=== PATIENT | male | born 1995 | race Caucasian/White ===

== ENCOUNTER 2017-02-11 17:25 | Inpatient (IN) | payer OTHER ==
[~2017-02-11] VITALS: Ht 175.3 cm; Wt 84.9 kg
[2017-02-11 17:49] LABS: MEAN PLAT.VOLUME 11.5 uM^3 (9.0-12.4); PLATELET COUNT 511 K/uL (156-360)
[2017-02-11 17:53] LABS: HEMATOCRIT 44.4 % (38.0-50.0); MCH 28.2 PG (29.0-34.0); MCHC 33.3 G/DL (30.0-36.0); MCV 84.6 FL (86-99); RBC DIS.WIDTH-CV 12.7 % (11.8-14.6); RBC DIS.WIDTH-SD 38.1 % (39-53); RED BLOOD COUNT 5.25 M/uL (4.00-5.50); WHITE BLOOD COUNT 33.5 K/uL (4.1-10.2)
[2017-02-11 17:57] LABS: CHLORIDE 97 mEq/L (99-109); POTASSIUM 3.6 mEq/L (3.7-5.4); SODIUM 144 mEq/L (136-147)
[2017-02-11 17:58] LABS: INTER. NORMALIZED RATIO 1.2; PROTHROMBIN TIME 13.6 SEC (10.2-12.9)
[2017-02-11 18:00] LABS: GLUCOSE 232 mg/dL (70-99)
[2017-02-11 18:01] LABS: ANION GAP 37 MEQ/L (2-14)
[2017-02-11 18:02] LABS: TOTAL BILIRUBIN 0.2 mg/dL (0.0-1.0)
[2017-02-11 18:03] LABS: SERUM ETHYL ALCOHOL < 10 mg/dL
[2017-02-11 18:04] LABS: ALKALINE PHOSPHATASE 89 IU/L (3-129); GFR ESTIMATE (CALCULATED) 21 mL/min/
[2017-02-11 18:05] LABS: DIRECT BILIRUBIN 0.2 mg/dL (0.0-0.3)
[2017-02-11 18:06] LABS: UREA NITROGEN (BUN) 18 mg/dL (9-23)
[2017-02-11 18:07] LABS: SALICYLATE < 5.0 MG/DL (15-30)
[2017-02-11 18:08] LABS: CREATINE KINASE 183 IU/L (1-294); TOTAL CK 183 IU/L (1-294)
[2017-02-11 18:09] LABS: TROP-I INTERPRETATION NEGATIVE; TROPONIN-I 0.02 ng/mL (0.0-0.30)
[2017-02-11 18:13] LABS: CK-MB 5.2 ng/mL (0.0-4.9)
[2017-02-11 18:24] LABS: CARBON DIOXIDE (BICARBONATE) 14.2 MEQ/L (20-31)
[2017-02-11 18:31] LABS: CARBOXY HGB 1.5 % (0-5); COMMENTS - BLOOD GASES A+C+; METHEMOGLOBIN 1.1 % (0-1.5); PCO2 < 20 mm Hg (35-45); PO2 120 mm Hg (80-100); SITE RR; pH 7.35 (7.35-7.45)
[2017-02-11 18:59] LABS: POINT-OF-CARE METER ID UU13113747
[2017-02-11 19:33] LABS: POINT-OF-CARE METER ID UU13113747
[2017-02-11 20:20] LABS: POINT-OF-CARE METER ID UU13113747; POINT-OF-CARE USER ID 608261302
[2017-02-11 21:15] VITALS: BP 88/43
[2017-02-11 21:20] VITALS: BP 91/39
[2017-02-11 22:00] VITALS: BP 80/24
[2017-02-11 22:26] LABS: POINT-OF-CARE METER ID UU14162636; POINT-OF-CARE USER ID ENVSME70
[2017-02-11 22:49] LABS: METH RESISTANT S AUREUS PCR NEGATIVE (NEGATIVE)
[2017-02-11 22:50] LABS: PROBE CHECK PASS; SPECIMEN PROCESSING CONTROL PASS
[2017-02-11 23:00] VITALS: BP 102/51
[2017-02-11 23:00] LABS: BASOPHIL COUNT 0.1 K/uL (0-0.1); EOSINOPHIL (%) 0 % (0-5); HEMATOCRIT 35.2 % (38.0-50.0); IMMATURE GRANULOCYTE (%) 2.4 % (0.0-0.7); IMMATURE GRANULOCYTE COUNT 0.9 K/uL; INSTRUMENT ABS NEUTROPHIL CT 31.2 K/uL; LYMPHOCYTE COUNT 3.3 K/uL (1.0-2.8); MCHC 33.5 G/DL (30.0-36.0); MCV 83.6 FL (86-99); MEAN PLAT.VOLUME 11.8 uM^3 (9.0-12.4); MONOCYTE (%) 10.9 % (3-12); MONOCYTE COUNT 4.4 K/uL (0-0.8); NEUTROPHIL (%) 78.2 % (45-76); NEUTROPHIL COUNT 31.2 K/uL (1.8-6.4); PLATELET COUNT 378 K/uL (156-360); RBC DIS.WIDTH-CV 12.7 % (11.8-14.6); RBC DIS.WIDTH-SD 38.5 % (39-53); RED BLOOD COUNT 4.21 M/uL (4.00-5.50)
[2017-02-11 23:01] LABS: WHITE BLOOD COUNT 39.9 K/uL (4.1-10.2)
[2017-02-11 23:07] LABS: CHLORIDE 105 mEq/L (99-109); POTASSIUM 3.7 mEq/L (3.7-5.4); SODIUM 140 mEq/L (136-147)
[2017-02-11 23:08] LABS: MAGNESIUM 1.6 mg/dL (1.3-2.7)
[2017-02-11 23:10] LABS: GLUCOSE 194 mg/dL (70-99)
[2017-02-11 23:11] LABS: ANION GAP 21 MEQ/L (2-14)
[2017-02-11 23:13] LABS: GFR ESTIMATE (CALCULATED) 21 mL/min/
[2017-02-11 23:14] LABS: UREA NITROGEN (BUN) 20 mg/dL (9-23)
[2017-02-12] VITALS (24 sets, daily range): BP systolic 91–117; BP diastolic 44–69
[2017-02-12 00:57] LABS: ADD MIUA? YES; BILIRUBIN NEGATIVE; BLOOD SMALL; GLUCOSE (STRIP) 50; KETONES 20; LEUKOCYTES NEGATIVE; NITRITE NEGATIVE; PROTEIN (STRIP) >=500; SPECIFIC GRAVITY 1.018 (1.000-1.030); UROBILINOGEN 0.2 MG/DL (0.2-1.0)
[2017-02-12 01:16] LABS: BACTERIA RARE /HPF; BUDDING YEAST 3+; CALCIUM OXALATE CRYSTALS 2+ /HPF; COLOR AMBER ((YELLOW)); EPITHELIAL CELLS RARE /HPF; MUCUS TRACE /LPF; RED BLOOD CELLS 0-5 /HPF (0-5); WHITE BLOOD CELLS 20-30 /HPF (0-5); WHITE BLOOD CELLS CLUMP FEW /HPF (0-5)
[2017-02-12 05:16] LABS: BASOPHIL COUNT 0.1 K/uL (0-0.1); EOSINOPHIL (%) 0 % (0-5); IMMATURE GRANULOCYTE (%) 2.3 % (0.0-0.7); INSTRUMENT ABS NEUTROPHIL CT 35.1 K/uL; LYMPHOCYTE COUNT 3.2 K/uL (1.0-2.8); MEAN PLAT.VOLUME 12.5 uM^3 (9.0-12.4); MONOCYTE (%) 6.9 % (3-12); MONOCYTE COUNT 2.9 K/uL (0-0.8); NEUTROPHIL (%) 82.9 % (45-76); NEUTROPHIL COUNT 35.1 K/uL (1.8-6.4); PLATELET COUNT 364 K/uL (156-360)
[2017-02-12 05:27] LABS: CHLORIDE 105 mEq/L (99-109); HEMATOCRIT 37.5 % (38.0-50.0); MCH 28.4 PG (29.0-34.0); MCHC 33.9 G/DL (30.0-36.0); MCV 83.9 FL (86-99); RBC DIS.WIDTH-CV 12.7 % (11.8-14.6); RBC DIS.WIDTH-SD 37.9 % (39-53); RED BLOOD COUNT 4.47 M/uL (4.00-5.50); SODIUM 140 mEq/L (136-147); WHITE BLOOD COUNT 41.8 K/uL (4.1-10.2)
[2017-02-12 05:30] LABS: GLUCOSE 159 mg/dL (70-99)
[2017-02-12 05:31] LABS: ANION GAP 20 MEQ/L (2-14)
[2017-02-12 05:33] LABS: GFR ESTIMATE (CALCULATED) 19 mL/min/
[2017-02-12 05:34] LABS: UREA NITROGEN (BUN) 25 mg/dL (9-23)
[2017-02-12 05:37] LABS: POTASSIUM 4.6 mEq/L (3.7-5.4)
[2017-02-12 05:38] LABS: ALKALINE PHOSPHATASE 55 IU/L (3-129); MAGNESIUM 2.4 mg/dL (1.3-2.7); TOTAL BILIRUBIN 0.3 mg/dL (0.0-1.0)
[2017-02-12 08:29] LABS: SAMPLE HEMOLYSIS CHECK 1; SAMPLE ICTERIC CHECK 0; SAMPLE LIPEMIA CHECK 0; VANCOMYCIN, TROUGH 20.3 MCG/ML (10-20)
[2017-02-13] VITALS (19 sets, daily range): BP systolic 95–121; BP diastolic 57–69
[2017-02-13 05:26] LABS: EOSINOPHIL (%) 0 % (0-5); HEMATOCRIT 34.4 % (38.0-50.0); IMMATURE GRANULOCYTE (%) 1.3 % (0.0-0.7); IMMATURE GRANULOCYTE COUNT 0.3 K/uL; INSTRUMENT ABS NEUTROPHIL CT 20.1 K/uL; LYMPHOCYTE COUNT 1.4 K/uL (1.0-2.8); MCH 27.8 PG (29.0-34.0); MCHC 32.8 G/DL (30.0-36.0); MCV 84.7 FL (86-99); MONOCYTE (%) 10.1 % (3-12); MONOCYTE COUNT 2.5 K/uL (0-0.8); NEUTROPHIL (%) 82.6 % (45-76); NEUTROPHIL COUNT 20.1 K/uL (1.8-6.4); RBC DIS.WIDTH-CV 13.1 % (11.8-14.6); RBC DIS.WIDTH-SD 40.2 % (39-53); RED BLOOD COUNT 4.06 M/uL (4.00-5.50); WHITE BLOOD COUNT 24.3 K/uL (4.1-10.2)
[2017-02-13 05:51] LABS: ALKALINE PHOSPHATASE 61 IU/L (3-129); ANION GAP 15 MEQ/L (2-14); CHLORIDE 102 MEQ/L (99-109); POTASSIUM 5.2 MEQ/L (3.7-5.4); SAMPLE HEMOLYSIS CHECK 0; SAMPLE ICTERIC CHECK 0; SAMPLE LIPEMIA CHECK 0; SODIUM 136 MEQ/L (136-147); TOTAL BILIRUBIN 0.4 MG/DL (0.0-1.0)
[2017-02-13 05:52] LABS: GFR ESTIMATE (CALCULATED) 14 mL/min/; GLUCOSE 107 mg/dL (70-99); UREA NITROGEN (BUN) 46 mg/dL (9-23)
[2017-02-13 06:27] LABS: MEAN PLAT.VOLUME 12.3 uM^3 (9.0-12.4); PLAT.SUFFICIENCY ADEQUATE
[2017-02-13 06:30] LABS: PLATELET COUNT 243 K/uL (156-360)
[2017-02-13 07:29] LABS: VANCOMYCIN, TROUGH 8.3 MCG/ML (10-20)
[2017-02-14] VITALS (19 sets, daily range): BP systolic 109–146; BP diastolic 60–91
[2017-02-14 05:42] LABS: HEMATOCRIT 32.3 % (38.0-50.0); MCH 28.1 PG (29.0-34.0); MCHC 33.1 G/DL (30.0-36.0); MCV 84.8 FL (86-99); MEAN PLAT.VOLUME 12.8 uM^3 (9.0-12.4); PLATELET COUNT 201 K/uL (156-360); RBC DIS.WIDTH-CV 12.9 % (11.8-14.6); RED BLOOD COUNT 3.81 M/uL (4.00-5.50); WHITE BLOOD COUNT 12.6 K/uL (4.1-10.2)
[2017-02-14 06:15] LABS: ANION GAP 12 MEQ/L (2-14); CHLORIDE 102 MEQ/L (99-109); GFR ESTIMATE (CALCULATED) 15 mL/min/; GLUCOSE 116 mg/dL (70-99); MAGNESIUM 2.3 mg/dl (1.3-2.7); POTASSIUM 4.7 MEQ/L (3.7-5.4); SAMPLE HEMOLYSIS CHECK 0; SAMPLE ICTERIC CHECK 0; SAMPLE LIPEMIA CHECK 0; SODIUM 135 MEQ/L (136-147); UREA NITROGEN (BUN) 47 mg/dL (9-23)
[2017-02-14 18:16] LABS: POINT-OF-CARE METER ID UU13113731
[2017-02-15] VITALS (8 sets, daily range): BP systolic 127–145; BP diastolic 75–96
[2017-02-15 01:22] LABS: ADD MIUA? YES; BILIRUBIN NEGATIVE; BLOOD MODERATE; COLOR YELLOW ((YELLOW)); GLUCOSE (STRIP) NEGATIVE; KETONES NEGATIVE; LEUKOCYTES NEGATIVE; NITRITE NEGATIVE; PROTEIN (STRIP) 30; UROBILINOGEN 0.2 MG/DL (0.2-1.0)
[2017-02-15 01:50] LABS: BACTERIA RARE /HPF; BUDDING YEAST RARE; CALCIUM OXALATE CRYSTALS 1+ /HPF; EPITHELIAL CELLS RARE /HPF; MUCUS 1+ /LPF; RED BLOOD CELLS 20-30 /HPF (0-5); WHITE BLOOD CELLS 20-30 /HPF (0-5)
[2017-02-15 02:21] LABS: SPECIFIC GRAVITY 1.019 (1.000-1.030)
[2017-02-15 06:03] LABS: EOSINOPHIL (%) 0 % (0-5); HEMATOCRIT 29.1 % (38.0-50.0); IMMATURE GRANULOCYTE (%) 0.4 % (0.0-0.7); IMMATURE GRANULOCYTE COUNT 0.1 K/uL; LYMPHOCYTE COUNT 0.8 K/uL (1.0-2.8); MCH 27.9 PG (29.0-34.0); MCV 84.6 FL (86-99); MEAN PLAT.VOLUME 12.4 uM^3 (9.0-12.4); MONOCYTE (%) 6.3 % (3-12); MONOCYTE COUNT 0.7 K/uL (0-0.8); NEUTROPHIL (%) 86.4 % (45-76); PLATELET COUNT 194 K/uL (156-360); RBC DIS.WIDTH-CV 12.6 % (11.8-14.6); RBC DIS.WIDTH-SD 38.7 % (39-53); RED BLOOD COUNT 3.44 M/uL (4.00-5.50); WHITE BLOOD COUNT 11.6 K/uL (4.1-10.2)
[2017-02-15 06:26] LABS: ALKALINE PHOSPHATASE 48 IU/L (3-129); ANION GAP 8 MEQ/L (2-14); CHLORIDE 103 MEQ/L (99-109); GFR ESTIMATE (CALCULATED) 22 mL/min/; GLUCOSE 128 mg/dL (70-99); MAGNESIUM 2.2 mg/dl (1.3-2.7); POTASSIUM 4.2 MEQ/L (3.7-5.4); SAMPLE HEMOLYSIS CHECK 0; SAMPLE ICTERIC CHECK 0; SAMPLE LIPEMIA CHECK 0; SODIUM 135 MEQ/L (136-147); TOTAL BILIRUBIN 0.4 MG/DL (0.0-1.0); UREA NITROGEN (BUN) 44 mg/dL (9-23)
[2017-02-15 08:17] LABS: POINT-OF-CARE METER ID UU13113781
[2017-02-15 11:12] LABS: POINT-OF-CARE METER ID UU14174216
[2017-02-15 16:26] LABS: POINT-OF-CARE METER ID UU14174216
[2017-02-16 00:26] VITALS: BP 134/81
[2017-02-16 03:12] VITALS: BP 138/82
[2017-02-16 06:31] LABS: EOSINOPHIL (%) 0.3 % (0-5); HEMATOCRIT 32.7 % (38.0-50.0); IMMATURE GRANULOCYTE (%) 0.7 % (0.0-0.7); IMMATURE GRANULOCYTE COUNT 0.1 K/uL; INSTRUMENT ABS NEUTROPHIL CT 7.4 K/uL; LYMPHOCYTE COUNT 2.9 K/uL (1.0-2.8); MCH 28.3 PG (29.0-34.0); MCV 85.8 FL (86-99); MEAN PLAT.VOLUME 12.4 uM^3 (9.0-12.4); MONOCYTE (%) 13.2 % (3-12); MONOCYTE COUNT 1.6 K/uL (0-0.8); NEUTROPHIL (%) 61.9 % (45-76); NEUTROPHIL COUNT 7.4 K/uL (1.8-6.4); PLATELET COUNT 204 K/uL (156-360); RBC DIS.WIDTH-CV 12.7 % (11.8-14.6); RBC DIS.WIDTH-SD 39.8 % (39-53); RED BLOOD COUNT 3.81 M/uL (4.00-5.50)
[2017-02-16 06:59] LABS: ALKALINE PHOSPHATASE 52 IU/L (3-129); ANION GAP 8 MEQ/L (2-14); CHLORIDE 108 MEQ/L (99-109); POTASSIUM 3.8 MEQ/L (3.7-5.4); SAMPLE HEMOLYSIS CHECK 0; SAMPLE ICTERIC CHECK 0; SAMPLE LIPEMIA CHECK 0; UREA NITROGEN (BUN) 33 mg/dL (9-23)
[2017-02-16 07:01] LABS: GFR ESTIMATE (CALCULATED) 38 mL/min/; GLUCOSE 83 mg/dL (70-99); SODIUM 144 MEQ/L (136-147); TOTAL BILIRUBIN 0.3 MG/DL (0.0-1.0)
[2017-02-16 08:04] VITALS: BP 139/82
[2017-02-16 11:28] VITALS: BP 135/81
[2017-02-16 14:52] LABS: C3 COMPLEMENT 123 MG/DL (58-170); C4 COMPLEMENT 21 MG/DL (10-40)
[2017-02-16 16:00] VITALS: BP 139/90
[2017-02-16 20:00] VITALS: BP 122/74
[2017-02-16 21:50] LABS: POINT-OF-CARE METER ID UU13113774; POINT-OF-CARE USER ID AHSUCEG
[2017-02-17] VITALS: BP 132/78
[2017-02-17 05:37] LABS: EOSINOPHIL (%) 3.2 % (0-5); EOSINOPHIL COUNT 0.4 K/uL (0-0.3); HEMATOCRIT 35.5 % (38.0-50.0); IMMATURE GRANULOCYTE (%) 1.8 % (0.0-0.7); IMMATURE GRANULOCYTE COUNT 0.2 K/uL; INSTRUMENT ABS NEUTROPHIL CT 5.5 K/uL; MCH 27.9 PG (29.0-34.0); MCHC 33.2 G/DL (30.0-36.0); MCV 83.9 FL (86-99); MEAN PLAT.VOLUME 11.7 uM^3 (9.0-12.4); MONOCYTE (%) 16.2 % (3-12); MONOCYTE COUNT 1.8 K/uL (0-0.8); NEUTROPHIL COUNT 5.5 K/uL (1.8-6.4); PLATELET COUNT 228 K/uL (156-360); RBC DIS.WIDTH-CV 12.2 % (11.8-14.6); RBC DIS.WIDTH-SD 36.9 % (39-53); RED BLOOD COUNT 4.23 M/uL (4.00-5.50); WHITE BLOOD COUNT 10.8 K/uL (4.1-10.2)
[2017-02-17 06:01] LABS: ALKALINE PHOSPHATASE 53 IU/L (3-129); ANION GAP 9 MEQ/L (2-14); CHLORIDE 103 MEQ/L (99-109); GLUCOSE 91 mg/dL (70-99); POTASSIUM 3.4 MEQ/L (3.7-5.4); SAMPLE HEMOLYSIS CHECK 0; SAMPLE ICTERIC CHECK 0; SAMPLE LIPEMIA CHECK 0; SODIUM 140 MEQ/L (136-147); UREA NITROGEN (BUN) 18 mg/dL (9-23)
[2017-02-17 06:05] LABS: GFR ESTIMATE (CALCULATED) 54 mL/min/; TOTAL BILIRUBIN 0.5 MG/DL (0.0-1.0)
[2017-02-17 07:32] VITALS: BP 135/84
[2017-02-17 11:34] LABS: POINT-OF-CARE METER ID UU13113725
[2017-02-17] MEDS ORDERED: Thiamine,Vitamin B1 PO (13:37)
[2017-02-17] MEDS ORDERED: AMOX TR-K CLV1 EAC3 PO (13:37)
[2017-02-17] MEDS ORDERED: SORE THROAT SP177 M1 MM (13:37)
[2017-02-17] MEDS ORDERED: FOLIC ACID1 MG PO (13:37)
[2017-02-17 15:43] LABS: POINT-OF-CARE METER ID UU13113725
[2017-02-17 16:27] VITALS: BP 140/82
[2017-02-17] MEDS ORDERED: CEPACOL SORE T1 EAC9 PO (21:18)
[2017-02-21 14:05] LABS: Neutrophil Cytoplasmic Aby Negative (Negative)
== END 2017-02-17 19:47 | DRG 917 ==
LOC: EME 17:25 → EDOF 20:12 → 4WEST 20:12 → ENRESERV 20:18 → 4WEST 21:10 → ENRESERV 02-14 → 4WEST 02-14 14:10 → 4EAST 02-15 00:29 → ENRESERV 02-15 09:07 → 5EAST 02-15 18:06
PROVIDERS: Emergency Medicine; Hospitalist; Internal Medicine; Internal Medicine Critical Care Medicine; Internal Medicine Nephrology; Specialist
DX: T46.1X2A Poisoning by calcium-channel blockers, intentional self-harm, initial encounter (principal); T39.1X2A Poisoning by 4-Aminophenol derivatives, intentional self-harm, initial encounter; N17.0 Acute kidney failure with tubular necrosis; J69.0 Pneumonitis due to inhalation of food and vomit; J90 Pleural effusion, not elsewhere classified; E87.2 Acidosis; E87.6 Hypokalemia; I95.9 Hypotension, unspecified; F32.9 Major depressive disorder, single episode, unspecified; I10 Essential (primary) hypertension; F10.20 Alcohol dependence, uncomplicated; F17.200 Nicotine dependence, unspecified, uncomplicated; Z91.5 Personal history of self-harm
CPT/HCPCS: 36600; 71010; 71020; 71250; 74176; 76770; 80048; 80048 91; 80053; 80076; 80202; 81003; 82550; 82553; 82570; 82803; 82948; 83605; 83735; 84100; 84156; 84484; 84550; 85025; 85027; 85610; 86021 90; 86038; 86160; 87040; 87081; 87086; 87502; 87641; 87651 90; 89190; 93005; 93306; 94640; 94640 76; 94660; 94799; 99281; 99285; C9113; G0480; J0132; J0461; J0610; J1644; J1815; J1940; J2270; J2405; J2543; J2765; J2930; J3010; J3370; J3475; J3480; J7030; J7040; J7050; J7060; J7070; J7120

== ENCOUNTER 2017-02-17 18:38 | Inpatient (IN) | payer OTHER ==
[~2017-02-17] VITALS: Ht 175.3 cm; Wt 84.9 kg
[~2017-02-17 18:38] MED LIST: AMOX TR-K CLV1 EAC3 PO; FOLIC ACID1 MG PO; SORE THROAT SP177 M1 MM; Thiamine,Vitamin B1 PO
[2017-02-17 20:19] VITALS: BP 138/90
[2017-02-17] MEDS ORDERED: CEPACOL SORE T1 EAC9 PO (21:18)
[2017-02-18 07:33] VITALS: BP 130/82
[2017-02-18 15:30] VITALS: BP 131/74
[2017-02-19 06:53] VITALS: BP 116/61
[2017-02-19 15:29] VITALS: BP 120/61
[2017-02-20 07:47] VITALS: BP 111/68
[2017-02-20] MEDS ORDERED: VENLAFAXINE HCL75 M3 PO (09:06)
[2017-02-20] MEDS ORDERED: ARIPIPRAZOLE5 MG PO (09:06)
[2017-02-20] MEDS ORDERED: AMOX TR-K CLV1 EAC3 PO (09:07)
== END 2017-02-20 11:13 | disposition home or self-care (01) | DRG 881 ==
LOC: 1WEST 18:38 → ENRESERV 18:39 → 1WEST 19:52
DX: F32.9 Major depressive disorder, single episode, unspecified (principal); F10.10 Alcohol abuse, uncomplicated; Z91.5 Personal history of self-harm; J18.9 Pneumonia, unspecified organism; N17.9 Acute kidney failure, unspecified
CPT/HCPCS: 94640; 94640 76; 99202